=== PATIENT | male | born 1950 | race Caucasian/White ===

== ENCOUNTER 2019-01-04 07:12 | Day surgery (SDC) | payer OTHER ==
[2019-01-03 10:21] VITALS: BMI 31.5
[2019-01-04 07:34] VITALS: TEMP 97.7
[2019-01-04] MEDS ORDERED: LIDOCAINE HCL 1%, 10 MG/ML (20ML VIAL) ONE ×2 (09:49→10:23)
[2019-01-04] MEDS ORDERED: BUPIVACAINE HCL/PF 0.5% (5MG/ML) 10 ML VIAL ONE (09:49)
[2019-01-04] MEDS ORDERED: BUPIVACAINE HCL/PF 0.25% (2.5MG/ML) 10 ML VIAL ONE (09:49)
[2019-01-04] MEDS ORDERED: MIDAZOLAM HCL 2 MG/2 ML SINGLE DOSE VIAL ONE ×2 (10:01)
[2019-01-04] MEDS ORDERED: LIDOCAINE HCL 1%, 10 MG/ML (20ML VIAL) PNB ONE (10:04)
[2019-01-04] MEDS ORDERED: ONDANSETRON 4 MG/2 ML VIAL ONE (12:23)
[2019-01-04] MEDS ORDERED: ONDANSETRON 4 MG/2 ML VIAL IVPUSH ONE (12:32)
[2019-01-04 13:57] VITALS: BP 127/70; PULSE 53
--- NOTE | 2019-01-07 10:01 | OP ---
DATE OF OPERATION: 01/04/2019 SURGEON: Amara Dobbins DPM PLASTIC FINISHER: Sarah Nelson, PGY-3 PREPROCEDURE DIAGNOSIS: Right foot painful bunion and right foot painful bone spur to the hallux. POSTPROCEDURE DIAGNOSIS: Right foot painful bunion and right foot painful bone spur to the hallux. PROCEDURE: Right foot bunionectomy and hallux bone spur excision. DESCRIPTION OF PROCEDURE: The patient was brought into the operating room, placed on the operating table in supine position. Following IV anesthesia, 18 mL of lidocaine plain were injected about the right foot 1st metatarsal in a Nogueira block fashion. A tourniquet was then applied to the right ankle, and the foot was then scrubbed, prepped, and draped in the usual aseptic manner. An Esmarch was used to exsanguinate the right foot, and the ankle tourniquet was raised to 250 mmHg. A linear incision was made to the right 1st metatarsal starting from the neck of the metatarsal to just distal to the hallux interphalangeal joint. This incision was deepened using sharp dissection with care taken to retract all vital neurovascular and tendinous structures. The capsule was then incised in a linear fashion on the metatarsal head on the proximal phalanx, and the interphalangeal joint was then exposed revealing an osteophyte at the medial aspect of the head of the proximal phalanx, which was resected using a sagittal saw. Attention was then directed to the 1st metatarsal head, which was noted to be in arthritic condition with a prominent medial prominence, which was also resected using a sagittal saw. The wound was then flushed with copious amounts of normal saline. Capsular closure was done with 3-0 Vicryl, and subcutaneous closure was then done with 4-0 Vicryl, and the skin was then closed with a running stitch using 4-0 nylon. A postoperative injection of 20 mL of Marcaine plain 0.5% was then injected around the right 1st metatarsal in a Nogueira block fashion. The ankle tourniquet was then put down, and a prompt hyperemic response was noted to all digits of the right foot. The foot was then dressed in Adaptic, gauze, Monisha wrap, and Anirudh wrap. The patient tolerated the procedure and anesthesia well and was transferred from the OR to PACU with vital signs stable, neurovascular status intact to his right foot. AMARA DOBBINS DPM [id number]
--- NOTE | 2019-01-07 17:35 | PATH ---
Surgical Pathology Report Patient Name: ROSALIA MONACO Med. Rec. #: [id number] /Age/Gender: 1950 (Age: 68) / M Account: [id number] Location: [facility] Taken: 01/04/2019 Received: 01/04/2019 Reported: 01/07/2019 Physicians: Bharath Dobbins DPM Specimen(s) Received BONE AND SOFT TISSUE RIGHT FOOT Clinical History Bunion right foot Final Diagnosis BONE AND SOFT TISSUE, FOOT, RIGHT, BUNIONECTOMY: BONE WITH DEGENERATIVE CHANGES AND DENSE FIBROCONNECTIVE TISSUE. Electronically Signed Pilar Beavers M.D. Gross Description Received in formalin labeled "right foot bone and soft tissue," is a 2.9 x 2.6 x 0.6 cm aggregate of multiple ghotra-yellow, irregular portions of bone. Technician Anatomic Pathology sections are submitted in one cassette, following decalcification. /01/04/2019 saudi/01/04/2019
== END 2019-01-04 14:30 | disposition home or self-care (01) ==
LOC: JASU-SURG 07:12
PROVIDERS: ATTEND Podiatrist Foot Surgery
PROC: 0QBQ0ZZ Excision of Right Toe Phalanx, Open Approach (ICD-10-PCS; principal; 2019-01-04 09:30)
DX: M21.611 Bunion of right foot (principal); M77.8 Other enthesopathies, not elsewhere classified; M25.774 Osteophyte, right foot
CPT/HCPCS: 36415; 84460; 86803; 87340; 87389; 88304-TC; 88311-TC

== ENCOUNTER 2019-04-11 07:42 | Day surgery (SDC) | payer OTHER ==
[2019-04-11] MEDS ORDERED: PROPOFOL 20 ML ONE ×2 (07:53)
[2019-04-11 08:14] VITALS: TEMP 98.7
[2019-04-11 09:46] VITALS: BP 121/78; PULSE 71
--- NOTE | 2019-04-12 14:20 | PATH ---
Surgical Pathology Report Patient Name: ROSALIA MONACO [facility]. Rec. #: [id number] /Age/Gender: 1950 (Age: 68) / M Account: [id number] Location: [facility] Taken: 04/11/2019 Received: 04/11/2019 Reported: 04/12/2019 Physicians: Kuldip Pa M.D. Specimen(s) Received POLYP RECTO-SIGMOID COLON Clinical History History of polyps Postoperative diagnosis: Colon polyp Final Diagnosis RECTO-SIGMOID COLON, POLYP, BIOPSY: HYPERPLASTIC POLYP. Electronically Signed Pilar Beavers M.D. Gross Description Received in formalin, labeled "biopsy polyp rectosigmoid colon" is a ghotra, irregular portion of soft tissue measuring 0.3 cm. in greatest dimension. The specimen is submitted in toto in one cassette 04/11/201904/11/2019
== END 2019-04-11 09:40 | disposition home or self-care (01) ==
LOC: FASU-ENDO 07:42
PROVIDERS: ATTEND Internal Medicine Gastroenterology
PROC: 0DBN8ZX Excision of Sigmoid Colon, Via Natural or Artificial Opening Endoscopic, Diagnostic (ICD-10-PCS; principal; 2019-04-11 08:43)
DX: Z86.010 Personal history of colon polyps (principal); K63.5 Polyp of colon
CPT/HCPCS: 88305-TC